=== PATIENT | female | born 1990 | race Caucasian/White ===

== ENCOUNTER → 2023-03-12 | Outpatient (CLI) | payer MEDICAID, SELFPAY ==
[2023-03-15 09:08] LABS: Chlamydia By Nucleic Acid AMP Negative (Negative); Gonococcus By Nucleic Acid AMP Negative (Negative)
== END | disposition home or self-care (01) ==
PROVIDERS: Visit Provider Registered Nurse
DX: Z34.90 Encounter for supervision of normal pregnancy, unspecified, unspecified trimester (principal)
CPT/HCPCS: 87086; 87088; 87491; 87591

== ENCOUNTER → 2023-06-08 | Outpatient (CLI) | payer BC, SELFPAY ==
[2023-06-08 12:54] LABS: Protein, Urine (Random) 68.6 mg/dL (<11.9); Protein:Creat Ratio 264 mg/g CRE (0-200)
== END | disposition home or self-care (01) ==
LOC: LABSPEC 11:33
PROVIDERS: Referring Provider Obstetrics & Gynecology; Visit Provider Obstetrics & Gynecology
DX: O12.10 Gestational proteinuria, unspecified trimester (principal); Z3A.00 Weeks of gestation of pregnancy not specified
CPT/HCPCS: 82570; 84156

== ENCOUNTER → 2023-07-05 | Outpatient (CLI) | payer BC, MEDICAID, SELFPAY ==
[2023-07-05 08:42] LABS: Absolute Lymphocyte Count 1.35 X10^3/uL (0.83-4.51); Absolute Neutrophil Count 4.8 X10^3/uL (2.0-7.7); Basophil# 0.03 X10^3/uL; Basophil% 0.4 % (0-1); Eosinophil# 0.05 X10^3/uL; Eosinophils% 0.7 % (0-5); Hematocrit 34.3 % (37-47); Lymphocyte # 1.35 X10^3/ul (0.83-4.51); Lymphocyte % 19.9 % (19-41); Mean Corpuscular Hgb 32.9 pg (27.0-32.0); Mean Platelet Vol. 9.6 fl (6.2-12.0); Monocyte% 7.4 % (0-10); NRBC Flagged by Analyzer 0 % (0-5); Neutrophil # 4.81 X10^3/uL (2.7-7.7); Neutrophil % 70.9 % (47-70); Platelet Count 283 K/mm3 (150-450); RBC Distribution Width CV 12.7 % (11.6-14.6); Red Blood Count 3.65 M/mm3 (4.2-5.4); White Blood Count 6.8 K/mm3 (4.4-11.0)
[2023-07-05 09:03] LABS: ALB/GLOB Ratio 0.7 RATIO (0.9-2.4); AST(SGOT) 14 U/L (15-37); Alanine Aminotransfer ALT/SGPT 15 U/L (13-56); Albumin, Serum 2.7 g/dL (3.2-5.0); Alkaline Phosphatase 69 U/L (45-117); Anion Gap 5 (5-15); BUN 8 mg/dL (7-18); BUN/Creat Ratio 15.3 RATIO (10-20); Calcium,Total 8.3 mg/dL (8.5-10.1); Chloride 108 mmol/L (98-107); Creatinine, Serum 0.52 mg/dL (0.55-1.02); EST Glomerular Filtration Rate 145 mL/min (>60); Est Glom Filt Rate - Afr Amer 175 mL/min (>60); Globulin 3.9 g/dL (2.2-4.2); Glucose 89 mg/dL (74-106); Glucose Challenge Gest 1H 50g 89 mg/dL (70-140); Potassium 3.2 mmol/L (3.5-5.1); Protein, Total 6.6 g/dL (6.4-8.2); Sodium Level 138 mmol/L (136-145)
[2023-07-05 09:45] LABS: HIV - WCH Non-Reactive (Nonreactive); Hepatitis B Surface Antigen Non-Reactive (Nonreactive); Hepatitis C Antibody Non-Reactive (Nonreactive); Rubella IgG Reactive (Nonreactive); Syphilis Antibodies Non-reactive
[2023-07-05 12:15] LABS: Protein, Urine (Random) 54.2 mg/dL (<11.9); Protein:Creat Ratio 420 mg/g CRE (0-200)
== END | disposition home or self-care (01) ==
LOC: PAVLAB 07:49 → LAB 07:51
PROVIDERS: Nurse Practitioner Women's Health; Registered Nurse; Referring Provider Obstetrics & Gynecology; Visit Provider Obstetrics & Gynecology
DX: O12.10 Gestational proteinuria, unspecified trimester (principal); Z3A.00 Weeks of gestation of pregnancy not specified
CPT/HCPCS: 36415; 80053; 82570; 82950; 84156; 85025; 86703; 86762; 86780; 86803; 86850; 86900; 86901; 87340

== ENCOUNTER → 2023-07-19 | Outpatient (CLI) | payer BC, MEDICAID, SELFPAY ==
[2023-07-19 10:25] LABS: Absolute Lymphocyte Count 1.28 X10^3/uL (0.83-4.51); Absolute Neutrophil Count 6.7 X10^3/uL (2.0-7.7); Basophil# 0.03 X10^3/uL; Basophil% 0.3 % (0-1); Eosinophil# 0.08 X10^3/uL; Eosinophils% 0.9 % (0-5); Hematocrit 33.4 % (37-47); Hemoglobin 11.8 g/dL (12.0-15.0); Lymphocyte # 1.28 X10^3/ul (0.83-4.51); Lymphocyte % 14.5 % (19-41); Mean Corp Hgb Conc 35.3 g/dL (32-36); Mean Corpuscular Hgb 32.9 pg (27.0-32.0); Mean Platelet Vol. 9.4 fl (6.2-12.0); Monocyte# 0.69 X10^3/uL; Monocyte% 7.8 % (0-10); NRBC Flagged by Analyzer 0 % (0-5); Neutrophil # 6.68 X10^3/uL (2.7-7.7); Neutrophil % 75.7 % (47-70); Platelet Count 260 K/mm3 (150-450); RBC Distribution Width CV 12.4 % (11.6-14.6); RBC Distribution Width SD 42.6 fl (35.1-43.9); Red Blood Count 3.59 M/mm3 (4.2-5.4); White Blood Count 8.8 K/mm3 (4.4-11.0)
[2023-07-19 10:35] LABS: Protein, Urine (Random) < 6.0 mg/dL (<11.9); Protein:Creat Ratio 394 mg/g CRE (0-200)
[2023-07-19 11:09] LABS: ALB/GLOB Ratio 0.7 RATIO (0.9-2.4); AST(SGOT) 18 U/L (15-37); Alanine Aminotransfer ALT/SGPT 16 U/L (13-56); Albumin, Serum 2.8 g/dL (3.2-5.0); Alkaline Phosphatase 69 U/L (45-117); Anion Gap 5 (5-15); BUN 8 mg/dL (7-18); BUN/Creat Ratio 16.1 RATIO (10-20); Calcium,Total 8.8 mg/dL (8.5-10.1); Chloride 108 mmol/L (98-107); EST Glomerular Filtration Rate 154 mL/min (>60); Est Glom Filt Rate - Afr Amer 187 mL/min (>60); Glucose 71 mg/dL (74-106); Potassium 3.7 mmol/L (3.5-5.1); Protein, Total 6.8 g/dL (6.4-8.2); Sodium Level 139 mmol/L (136-145)
== END | disposition home or self-care (01) ==
PROVIDERS: Referring Provider Nurse Practitioner Women's Health; Visit Provider Nurse Practitioner Women's Health
DX: O12.12 Gestational proteinuria, second trimester (principal); Z3A.00 Weeks of gestation of pregnancy not specified
CPT/HCPCS: 36415; 80053; 82570; 84156; 85025

== ENCOUNTER → 2023-08-02 | Outpatient (CLI) | payer BC, MEDICAID, SELFPAY ==
[2023-08-02 10:20] LABS: Absolute Lymphocyte Count 1.42 X10^3/uL (0.83-4.51); Absolute Neutrophil Count 6.5 X10^3/uL (2.0-7.7); Basophil# 0.04 X10^3/uL; Basophil% 0.5 % (0-1); Eosinophil# 0.06 X10^3/uL; Eosinophils% 0.7 % (0-5); Hematocrit 35.7 % (37-47); Hemoglobin 12.3 g/dL (12.0-15.0); Lymphocyte # 1.42 X10^3/ul (0.83-4.51); Lymphocyte % 16.4 % (19-41); Mean Corp Hgb Conc 34.5 g/dL (32-36); Mean Corpuscular Hgb 32.3 pg (27.0-32.0); Mean Corpuscular Volume 93.7 fL (81-99); Mean Platelet Vol. 9.4 fl (6.2-12.0); Monocyte# 0.62 X10^3/uL; Monocyte% 7.2 % (0-10); NRBC Flagged by Analyzer 0 % (0-5); Neutrophil # 6.47 X10^3/uL (2.7-7.7); Neutrophil % 74.6 % (47-70); Platelet Count 244 K/mm3 (150-450); RBC Distribution Width CV 12.4 % (11.6-14.6); RBC Distribution Width SD 42.4 fl (35.1-43.9); Red Blood Count 3.81 M/mm3 (4.2-5.4); White Blood Count 8.7 K/mm3 (4.4-11.0)
[2023-08-02 10:42] LABS: ALB/GLOB Ratio 0.8 RATIO (0.9-2.4); AST(SGOT) 13 U/L (15-37); Alanine Aminotransfer ALT/SGPT 15 U/L (13-56); Albumin, Serum 2.8 g/dL (3.2-5.0); Alkaline Phosphatase 75 U/L (45-117); Anion Gap 3 (5-15); BUN 8 mg/dL (7-18); Calcium,Total 8.5 mg/dL (8.5-10.1); Chloride 109 mmol/L (98-107); Creatinine, Serum 0.53 mg/dL (0.55-1.02); EST Glomerular Filtration Rate 142 mL/min (>60); Est Glom Filt Rate - Afr Amer 171 mL/min (>60); Globulin 3.7 g/dL (2.2-4.2); Glucose 82 mg/dL (74-106); Potassium 3.4 mmol/L (3.5-5.1); Protein, Total 6.5 g/dL (6.4-8.2); Sodium Level 139 mmol/L (136-145)
== END | disposition home or self-care (01) ==
PROVIDERS: Advanced Practice Midwife; Referring Provider Nurse Practitioner Women's Health; Visit Provider Nurse Practitioner Women's Health
DX: O12.12 Gestational proteinuria, second trimester (principal); O09.92 Supervision of high risk pregnancy, unspecified, second trimester; E87.6 Hypokalemia; O99.282 Endocrine, nutritional and metabolic diseases complicating pregnancy, second trimester; Z3A.00 Weeks of gestation of pregnancy not specified
CPT/HCPCS: 36415; 80053; 85025

== ENCOUNTER → 2023-08-16 | Outpatient (CLI) | payer BC, MEDICAID, SELFPAY ==
[2023-08-16 10:36] LABS: Absolute Lymphocyte Count 1.28 X10^3/uL (0.83-4.51); Absolute Neutrophil Count 7.4 X10^3/uL (2.0-7.7); Basophil# 0.03 X10^3/uL; Basophil% 0.3 % (0-1); Eosinophil# 0.05 X10^3/uL; Eosinophils% 0.5 % (0-5); Hematocrit 37.1 % (37-47); Hemoglobin 12.6 g/dL (12.0-15.0); Lymphocyte # 1.28 X10^3/ul (0.83-4.51); Lymphocyte % 13.6 % (19-41); Mean Corpuscular Hgb 31.7 pg (27.0-32.0); Mean Corpuscular Volume 93.5 fL (81-99); Mean Platelet Vol. 9.5 fl (6.2-12.0); Monocyte# 0.58 X10^3/uL; Monocyte% 6.2 % (0-10); NRBC Flagged by Analyzer 0 % (0-5); Neutrophil % 78.6 % (47-70); Platelet Count 264 K/mm3 (150-450); RBC Distribution Width CV 12.4 % (11.6-14.6); RBC Distribution Width SD 42.9 fl (35.1-43.9); Red Blood Count 3.97 M/mm3 (4.2-5.4); White Blood Count 9.4 K/mm3 (4.4-11.0)
[2023-08-16 10:57] LABS: ALB/GLOB Ratio 0.7 RATIO (0.9-2.4); AST(SGOT) 18 U/L (15-37); Alanine Aminotransfer ALT/SGPT 16 U/L (13-56); Albumin, Serum 2.8 g/dL (3.2-5.0); Alkaline Phosphatase 96 U/L (45-117); Anion Gap 5 (5-15); BUN 7 mg/dL (7-18); BUN/Creat Ratio 12.3 RATIO (10-20); Calcium,Total 8.6 mg/dL (8.5-10.1); Chloride 106 mmol/L (98-107); Creatinine, Serum 0.57 mg/dL (0.55-1.02); EST Glomerular Filtration Rate 131 mL/min (>60); Est Glom Filt Rate - Afr Amer 159 mL/min (>60); Globulin 4.2 g/dL (2.2-4.2); Glucose 92 mg/dL (74-106); LDH 167 U/L (84-246); Potassium 3.7 mmol/L (3.5-5.1); Sodium Level 137 mmol/L (136-145); Uric Acid 3.8 mg/dL (2.6-6.0)
[2023-08-16 10:58] LABS: Protein, Urine (Random) 20.6 mg/dL (<11.9); Protein:Creat Ratio 384 mg/g CRE (0-200)
[2023-08-16 13:53] LABS: Protein, Urine (Random) 86.5 mg/dL (<11.9); Protein:Creat Ratio 335 mg/g CRE (0-200)
== END | disposition home or self-care (01) ==
PROVIDERS: Advanced Practice Midwife; Referring Provider Obstetrics & Gynecology; Visit Provider Obstetrics & Gynecology
DX: O12.10 Gestational proteinuria, unspecified trimester (principal); Z3A.00 Weeks of gestation of pregnancy not specified
CPT/HCPCS: 36415; 80053; 82570; 83615; 84156; 84550; 85025; 87086

== ENCOUNTER → 2023-08-24 | Outpatient (CLI) | payer BC, MEDICAID, SELFPAY ==
[2023-08-24 13:52] LABS: Absolute Neutrophil Count 6.1 X10^3/uL (2.0-7.7); Basophil# 0.04 X10^3/uL; Basophil% 0.5 % (0-1); Eosinophil# 0.04 X10^3/uL; Eosinophils% 0.5 % (0-5); Hematocrit 34.8 % (37-47); Hemoglobin 11.8 g/dL (12.0-15.0); Lymphocyte % 17.4 % (19-41); Mean Corp Hgb Conc 33.9 g/dL (32-36); Mean Corpuscular Hgb 31.6 pg (27.0-32.0); Mean Corpuscular Volume 93.3 fL (81-99); Mean Platelet Vol. 9.8 fl (6.2-12.0); Monocyte# 0.87 X10^3/uL; Monocyte% 10.1 % (0-10); NRBC Flagged by Analyzer 0 % (0-5); Neutrophil # 6.09 X10^3/uL (2.7-7.7); Neutrophil % 70.8 % (47-70); Platelet Count 269 K/mm3 (150-450); RBC Distribution Width CV 12.4 % (11.6-14.6); RBC Distribution Width SD 42.3 fl (35.1-43.9); Red Blood Count 3.73 M/mm3 (4.2-5.4); White Blood Count 8.6 K/mm3 (4.4-11.0)
[2023-08-24 14:27] LABS: ALB/GLOB Ratio 0.7 RATIO (0.9-2.4); AST(SGOT) 17 U/L (15-37); Alanine Aminotransfer ALT/SGPT 12 U/L (13-56); Albumin, Serum 2.6 g/dL (3.2-5.0); Alkaline Phosphatase 95 U/L (45-117); Anion Gap 2 (5-15); BUN 9 mg/dL (7-18); BUN/Creat Ratio 18.1 RATIO (10-20); Calcium,Total 8.2 mg/dL (8.5-10.1); Chloride 106 mmol/L (98-107); EST Glomerular Filtration Rate 154 mL/min (>60); Est Glom Filt Rate - Afr Amer 186 mL/min (>60); Globulin 3.8 g/dL (2.2-4.2); Glucose 75 mg/dL (74-106); Potassium 3.7 mmol/L (3.5-5.1); Protein, Total 6.4 g/dL (6.4-8.2); Sodium Level 134 mmol/L (136-145)
== END | disposition home or self-care (01) ==
LOC: PAVLAB 12:22 → LAB 12:24
PROVIDERS: Advanced Practice Midwife; Referring Provider Nurse Practitioner Women's Health; Visit Provider Nurse Practitioner Women's Health
DX: O12.10 Gestational proteinuria, unspecified trimester (principal); Z3A.00 Weeks of gestation of pregnancy not specified
CPT/HCPCS: 36415; 80053; 85025

== ENCOUNTER → 2023-08-31 | Outpatient (CLI) | payer BC, MEDICAID, SELFPAY ==
[2023-08-31 11:13] LABS: Absolute Lymphocyte Count 0.99 X10^3/uL (0.83-4.51); Absolute Neutrophil Count 5.7 X10^3/uL (2.0-7.7); Basophil# 0.04 X10^3/uL; Basophil% 0.5 % (0-1); Eosinophil# 0.09 X10^3/uL; Eosinophils% 1.2 % (0-5); Hematocrit 36.5 % (37-47); Hemoglobin 12.8 g/dL (12.0-15.0); Lymphocyte # 0.99 X10^3/ul (0.83-4.51); Lymphocyte % 12.7 % (19-41); Mean Corp Hgb Conc 35.1 g/dL (32-36); Mean Corpuscular Hgb 32.8 pg (27.0-32.0); Mean Corpuscular Volume 93.6 fL (81-99); Mean Platelet Vol. 9.3 fl (6.2-12.0); Monocyte# 0.91 X10^3/uL; Monocyte% 11.7 % (0-10); NRBC Flagged by Analyzer 0 % (0-5); Neutrophil # 5.72 X10^3/uL (2.7-7.7); Neutrophil % 73.4 % (47-70); Platelet Count 238 K/mm3 (150-450); RBC Distribution Width CV 12.8 % (11.6-14.6); RBC Distribution Width SD 43.5 fl (35.1-43.9); White Blood Count 7.8 K/mm3 (4.4-11.0)
[2023-08-31 11:31] LABS: ALB/GLOB Ratio 0.7 RATIO (0.9-2.4); AST(SGOT) 17 U/L (15-37); Alanine Aminotransfer ALT/SGPT 13 U/L (13-56); Albumin, Serum 2.8 g/dL (3.2-5.0); Alkaline Phosphatase 108 U/L (45-117); Anion Gap 2 (5-15); BUN 9 mg/dL (7-18); BUN/Creat Ratio 16.3 RATIO (10-20); Calcium,Total 8.7 mg/dL (8.5-10.1); Chloride 106 mmol/L (98-107); Creatinine, Serum 0.55 mg/dL (0.55-1.02); EST Glomerular Filtration Rate 136 mL/min (>60); Est Glom Filt Rate - Afr Amer 165 mL/min (>60); Glucose 80 mg/dL (74-106); Potassium 3.7 mmol/L (3.5-5.1); Protein, Total 6.8 g/dL (6.4-8.2); Sodium Level 136 mmol/L (136-145)
== END | disposition home or self-care (01) ==
LOC: PAVLAB 10:40
PROVIDERS: Referring Provider Obstetrics & Gynecology; Visit Provider Obstetrics & Gynecology
DX: O12.10 Gestational proteinuria, unspecified trimester (principal); Z3A.00 Weeks of gestation of pregnancy not specified
CPT/HCPCS: 36415; 80053; 85025

== ENCOUNTER → 2023-08-31 | Outpatient (CLI) | payer BC, MEDICAID, SELFPAY ==
[2023-08-31 14:26] LABS: Protein, Urine (Random) 91.5 mg/dL (<11.9); Protein:Creat Ratio 384 mg/g CRE (0-200)
== END | disposition home or self-care (01) ==
LOC: LABSPEC 12:28
PROVIDERS: Referring Provider Obstetrics & Gynecology; Visit Provider Obstetrics & Gynecology
DX: O12.10 Gestational proteinuria, unspecified trimester (principal); Z3A.00 Weeks of gestation of pregnancy not specified
CPT/HCPCS: 82570; 84156

== ENCOUNTER → 2023-09-05 | Outpatient (CLI) | payer BC, MEDICAID, SELFPAY ==
--- NOTE | 2023-09-05 16:48 | US_ITS ---
STUDY: SECOND AND THIRD TRIMESTER OBSTETRICAL ULTRASOUND - LIMITED REASON FOR EXAM: Female, 33 years old Grown US every 4 weeks starting this week LMP: 12/30/2022 PRIOR ULTRASOUND: None. TECHNIQUE: Transabdominal TECHNICAL QUALITY: Adequate. FINDINGS: There is a single intrauterine fetus. The fetus is in a cephalic presentation. There is demonstrated cardiac activity with a heart rate of 133 bpm. There is a normal amniotic fluid volume. The largest amniotic fluid pocket measures 5.5 cm. The amniotic fluid index (RENETTA) is 14.2 cm. The placenta is fundal in location. There are Grade 1 placental changes. The cervix measures 4.4 cm in length. BIOMETRY: BPD: 9.0 cm: 36 weeks, 2 days HC: 32.6 cm: 37 weeks, 0 days AC: 30.9 cm: 34 weeks, 6 days FL: 6.8 cm: 34 weeks, 5 days Age by LMP: 35 weeks, 4 days. ABI by LMP: 10/06/2023. age by prior US: weeks, days. ABI by prior US: . age by current US: 36 weeks, 2 days. ABI by current US: 10/01/2023. Estimated weight: 2615 grams, +/- 392 grams, 38 percentile. Gender: US/OB Limited With Biometrics IMPRESSION: Living intrauterine of 36 weeks 2 days as described above. Electronically Signed: Rob Park MD at 22:30 EST ,
== END | disposition home or self-care (01) ==
LOC: US 16:48
PROVIDERS: Referring Provider Advanced Practice Midwife; Visit Provider Advanced Practice Midwife
DX: O12.12 Gestational proteinuria, second trimester (principal); Z3A.00 Weeks of gestation of pregnancy not specified
CPT/HCPCS: 76816

== ENCOUNTER → 2023-09-06 | Outpatient (CLI) | payer BC, MEDICAID, SELFPAY ==
[2023-09-06 10:47] LABS: Absolute Lymphocyte Count 1.14 X10^3/uL (0.83-4.51); Absolute Neutrophil Count 9.4 X10^3/uL (2.0-7.7); Basophil# 0.03 X10^3/uL; Basophil% 0.3 % (0-1); Eosinophil# 0.03 X10^3/uL; Eosinophils% 0.3 % (0-5); Hematocrit 36.6 % (37-47); Hemoglobin 12.4 g/dL (12.0-15.0); Lymphocyte # 1.14 X10^3/ul (0.83-4.51); Lymphocyte % 9.9 % (19-41); Mean Corp Hgb Conc 33.9 g/dL (32-36); Mean Corpuscular Hgb 31.5 pg (27.0-32.0); Mean Corpuscular Volume 92.9 fL (81-99); Mean Platelet Vol. 9.5 fl (6.2-12.0); Monocyte# 0.84 X10^3/uL; Monocyte% 7.3 % (0-10); NRBC Flagged by Analyzer 0 % (0-5); Neutrophil % 81.8 % (47-70); Platelet Count 268 K/mm3 (150-450); RBC Distribution Width CV 12.6 % (11.6-14.6); RBC Distribution Width SD 42.7 fl (35.1-43.9); Red Blood Count 3.94 M/mm3 (4.2-5.4); White Blood Count 11.5 K/mm3 (4.4-11.0)
[2023-09-06 10:55] LABS: ALB/GLOB Ratio 0.6 RATIO (0.9-2.4); AST(SGOT) 15 U/L (15-37); Alanine Aminotransfer ALT/SGPT 12 U/L (13-56); Albumin, Serum 2.7 g/dL (3.2-5.0); Alkaline Phosphatase 122 U/L (45-117); Anion Gap 4 (5-15); BUN 6 mg/dL (7-18); BUN/Creat Ratio 9.5 RATIO (10-20); Calcium,Total 8.5 mg/dL (8.5-10.1); Chloride 107 mmol/L (98-107); Creatinine, Serum 0.63 mg/dL (0.55-1.02); EST Glomerular Filtration Rate 117 mL/min (>60); Est Glom Filt Rate - Afr Amer 142 mL/min (>60); Globulin 4.3 g/dL (2.2-4.2); Glucose 83 mg/dL (74-106); Potassium 3.6 mmol/L (3.5-5.1); Sodium Level 138 mmol/L (136-145)
[2023-09-06 11:00] LABS: Protein, Urine (Random) 49.8 mg/dL (<11.9); Protein:Creat Ratio 519 mg/g CRE (0-200)
== END | disposition home or self-care (01) ==
LOC: PAVLAB 10:19
PROVIDERS: Referring Provider Advanced Practice Midwife; Visit Provider Advanced Practice Midwife
DX: O12.10 Gestational proteinuria, unspecified trimester (principal); Z3A.00 Weeks of gestation of pregnancy not specified
CPT/HCPCS: 36415; 80053; 82570; 84156; 85025

== ENCOUNTER → 2023-09-12 | Outpatient (CLI) | payer BC, MEDICAID, SELFPAY ==
[2023-09-12 12:20] LABS: Absolute Lymphocyte Count 1.23 X10^3/uL (0.83-4.51); Absolute Neutrophil Count 6.1 X10^3/uL (2.0-7.7); Basophil# 0.03 X10^3/uL; Basophil% 0.4 % (0-1); Eosinophil# 0.03 X10^3/uL; Eosinophils% 0.4 % (0-5); Hematocrit 34.9 % (37-47); Hemoglobin 11.9 g/dL (12.0-15.0); Lymphocyte # 1.23 X10^3/ul (0.83-4.51); Lymphocyte % 15.3 % (19-41); Mean Corp Hgb Conc 34.1 g/dL (32-36); Mean Corpuscular Hgb 31.1 pg (27.0-32.0); Mean Corpuscular Volume 91.1 fL (81-99); Mean Platelet Vol. 9.3 fl (6.2-12.0); Monocyte# 0.63 X10^3/uL; Monocyte% 7.8 % (0-10); NRBC Flagged by Analyzer 0 % (0-5); Neutrophil # 6.09 X10^3/uL (2.7-7.7); Neutrophil % 75.6 % (47-70); Platelet Count 328 K/mm3 (150-450); RBC Distribution Width CV 12.7 % (11.6-14.6); RBC Distribution Width SD 41.4 fl (35.1-43.9); Red Blood Count 3.83 M/mm3 (4.2-5.4); White Blood Count 8.1 K/mm3 (4.4-11.0)
[2023-09-12 12:39] LABS: ALB/GLOB Ratio 0.5 RATIO (0.9-2.4); AST(SGOT) 16 U/L (15-37); Alanine Aminotransfer ALT/SGPT 11 U/L (13-56); Albumin, Serum 2.4 g/dL (3.2-5.0); Alkaline Phosphatase 126 U/L (45-117); Anion Gap 6 (5-15); BUN 9 mg/dL (7-18); BUN/Creat Ratio 15.1 RATIO (10-20); Calcium,Total 8.7 mg/dL (8.5-10.1); Chloride 107 mmol/L (98-107); EST Glomerular Filtration Rate 125 mL/min (>60); Est Glom Filt Rate - Afr Amer 151 mL/min (>60); Globulin 4.4 g/dL (2.2-4.2); Glucose 80 mg/dL (74-106); Potassium 3.7 mmol/L (3.5-5.1); Protein, Total 6.8 g/dL (6.4-8.2); Sodium Level 137 mmol/L (136-145)
[2023-09-12 17:44] LABS: Protein, Urine (Random) 192.2 mg/dL (<11.9); Protein:Creat Ratio 579 mg/g CRE (0-200)
== END | disposition home or self-care (01) ==
PROVIDERS: Registered Nurse; PCP Internal Medicine; Referring Provider Advanced Practice Midwife; Visit Provider Advanced Practice Midwife
DX: Z34.93 Encounter for supervision of normal pregnancy, unspecified, third trimester (principal); Z3A.36 36 weeks gestation of pregnancy
CPT/HCPCS: 36415; 80053; 82570; 84156; 85025; 87081

== ENCOUNTER 2023-09-17 07:23 | Outpatient (CLI) | payer BC, MEDICAID, SELFPAY ==
[2023-09-17] VITALS (17 sets, daily range): BP systolic 110; BP diastolic 65; PULSE 90–117; TEMP 37; O2SAT 94–97; BMI 27.8
[2023-09-17 09:30] LABS: Hematocrit 32.1 % (37-47); Hemoglobin 11.3 g/dL (12.0-15.0); Mean Corp Hgb Conc 35.2 g/dL (32-36); Mean Corpuscular Hgb 31.7 pg (27.0-32.0); Mean Corpuscular Volume 90.2 fL (81-99); Mean Platelet Vol. 9.1 fl (6.2-12.0); Platelet Count 308 K/mm3 (150-450); RBC Distribution Width CV 12.4 % (11.6-14.6); RBC Distribution Width SD 40.8 fl (35.1-43.9); Red Blood Count 3.56 M/mm3 (4.2-5.4); White Blood Count 8.5 K/mm3 (4.4-11.0)
[2023-09-17] MEDS: Lactated Ringers 1,000 ML 999 ML IV (09:42)
[2023-09-17 09:59] LABS: AST(SGOT) 15 U/L (15-37); Alanine Aminotransfer ALT/SGPT 12 U/L (13-56); EST Glomerular Filtration Rate 151 mL/min (>60); Est Glom Filt Rate - Afr Amer 183 mL/min (>60); Estimated Creatinine Clearance 128.94 ml/min; Uric Acid 4.1 mg/dL (2.6-6.0)
[2023-09-17 10:17] LABS: Protein, Urine (Random) 19.9 mg/dL (<11.9); Protein:Creat Ratio 556 mg/g CRE (0-200)
--- NOTE | 2023-09-17 12:57 | OB.TRI.HP_ITS ---
HPI - General General Date of Service: 09/17/23 Chief Complaint: contractions HPI Narrative SIENA CORTEZ, is a 33 F who presents with contractions. good movement, no lof/vb. denies persistent headaches, visual changes or RUQ pain. has been monitored outpatient for proteinuria. Maternal Data Information ABI Calculator Estimated Delivery Date Method Current WG Current Estimate 10/06/23 Ultrasound #1 37w 2d Other Estimates 10/14/23 LMP (Certain) 36w 1d PFSH PFSH Medical History Abnormal Pap smear of cervix Home Medications vitamins no.163-iron bis-gly 20 mg-folate no.10 1 mg tablet (PNV Tabs 20-1) 1 tab PO DAILY 03/08/23 [History Last Taken Unknown] Allergy/AdvReac Type Severity Reaction Status Date / Time No Known Allergies Allergy Verified 09/12/23 11:06 Family History Grandfather Myocardial infarction Social History adopted: No household members: spouse and children number of children: 3 current occupational status: unemployed current occupational exposures/hazards: No pets and animals: Yes pets and animals: dog(s) history of recent travel: Yes ([place]) out of state: Yes out of country: No sexually active: Yes Smoking Status: Never smoker alcohol intake: current alcohol intake frequency: a few times a month details: Not while substance use type: does not use well-balanced diet: daily or most days caffeine: No eating out: 1-3 times/week during the past year weight has: remained stable what type of physical activity do you participate in: none 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 Date Name GA/Weeks Outcome Route Bth Weight Gen Labor Lgth Anesthesia Del Locatn Provider FOB 07/26/16 Miscarriage- chemical pregnanc 10/12/16 miscarriage at 8 wks 10/08/17 Su 41 live - full term 7#2oz Female 10 HRS [facility] 04/24/18 miscarriage-chemical 03/10/19 Julien 38 live - full term 7#1oz Male 10-12 HRS epidural [facility] 05/08/21 Chevy 39 live - full term 7#2oz Male epidural [facility] Visit Details Expected Delivery Route/Plan Labor Preferences- CB/BF classes: no labor support person: Teri labor intervention preferences: [] pain management options preferred: epidural cut cord/dad catch: cord : yes PP control planned: discussed: plans BS discussed possible routes of delivery and associated risks: [] special requests: [] Plans Covid status: unvaccinated Flu vaccine: declines Tdap vaccine: [] Rhogam: NA LARC form signed: yes Problem list reviewed and updated with the most current plan of care details and appropriate orders placed. Relevant counseling for the gestational age provided. Continue routine care and follow up unless otherwise noted in visit notes/problem list details OB Flowsheet Initial Weight: 135 lb Date -?-?-?-?-?-?-?-?-?-?-?-?- EGA Weight BP Urine Prot -?-?-?-?-?-?-?-?-?-?-?-?- Glucose FHR FuHt Pres Dilation -?-?-?-?-?-?-?-?-?-?-?-?- Effaced St Visit Note 03/12/23 -?-?-?-?-?-?-?-?-?-?-?-?- 10w 2d 135 lb 4 oz (+4 oz) 115/68 -?-?-?-?-?-?-?-?-?-?-?-?- 160 -?-?-?-?-?-?-?-?-?-?-?-?- LC-CRL 30.6 no c /w LMP. dates changed. consulted with SM agrees with CRL dates. 04/12/23 -?-?-?-?-?-?-?-?-?-?-?-?- 14w 5d 136 lb 8 oz (+1 lb 8 oz) 92/58 Negative -?-?-?-?-?-?-?-?-?-?-?--?- Negative 150 -?-?-?-?-?-?-?-?-?-?-?-?- JV- no complaint s today. declined nipt. 05/10/23 -?-?-?-?-?-?-?-?-?-?-?-?- 18w 5d 136 lb 2 oz (+1 lb 2 oz) 90/55 Negative -?-?-?-?-?-?-?-?-?-?-?-?- Negative 144 -?-?-?-?-?-?-?-?-?-?-?-?- JV- no complaint s today. wants pp tubal. we discussed likely will need to be added to or schedule remote from delivery. 06/08/23 -?-?-?-?-?-?-?-?-?-?-?-?- 22w 6d 140 lb 1 oz (+5 lb 1 oz) 102/64 1+ -?-?-?-?-?-?-?-?-?-?-?-?- Negative 145 -?-?-?-?-?-?-?-?-?-?-?-?- SM- no vb lof go od fm no regualr ctx 07/05/23 -?-?-?-?-?-?-?-?-?-?-?-?- 26w 5d 144 lb 2 oz (+9 lb 2 oz) 122/78 1+ -?-?-?-?-?-?-?-?-?-?-?-?- Negative 153 25 -?-?-?-?-?-?-?-?-?-?-?-?- MH-No VB, LOF. G ood FM. Doing all labs today, added Urine Pro/Cre ratio. 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 good fm. Labs after appt today. good bps at home, no CROWDER, dizziness, BV. passed glucose 08/02/23 -?-?-?-?-?-?-?-?-?-?-?-?- 30w 5d 148 lb (+13 lb) 110/64 1+ -?-?-?-?-?-?-?--?-?-?-?-?- Negative 130 30 -?-?-?-?-?-?-?-?-?-?-?-?- KW-no lof/vb/ctx . good fm. Pre e labs today after appt. 08/16/23 -?-?-?-?-?-?-?-?-?-?-?-?- 32w 5d 146 lb 8 oz (+11 lb 8 oz) 97/62 -?-?-?-?-?-?-?-?-?-?-?-?- 130 32 -?-?-?-?-?-?-?-?-?-?-?-?- SM- no vb lof go od fm no regular ctx discussed proteinuriamanagement 08/24/23 -?-?-?-?-?-?-?-?-?-?-?-?- 33w 6d 148 lb 2 oz (+13 lb 2 oz) 118/70 Trace -?-?-?-?-?-?-?-?-?-?-?-?- Negative 125 -?-?-?-?-?-?-?-?-?-?-?-?- KW- no vb/lof/ct x. good fm. reviewed POC with SM. Plan for growth us q4 weeks. NSTs weekly and weekly labs 08/31/23 -?-?-?-?-?-?-?-?-?-?-?-?- 34w 6d 148 lb 2 oz (+13 lb 2 oz) 108/67 1+ -?-?-?-?-?-?-?-?-?-?-?-?- Negative 130 33 -?-?-?-?-?-?-?-?-?-?-?-?- JV- still has pr oteinuria with low normal bp, continue monitoring. needs growth scan and rpt labs NST reactive 09/06/23 -?-?-?-?-?-?-?-?--?-?-?-?- 35w 5d 147 lb 4 oz (+12 lb 4 oz) 110/71 -?-?-?-?-?-?-?-?-?-?-?-?- 135 34 1 -?-?-?-?-?-?-?-?-?-?-?-?- 50 -2 kw- no vb/ lof/regular ctx. good fm. Reactive NST. having vaginal pressure. requesting cervical check. Growth US 38% 09/12/23 -?-?-?-?-?-?-?-?-?-?-?-?- 36w 4d 147 lb 4 oz (+12 lb 4 oz) 113/68 -?-?-?-?-?-?-?-?-?-?-?-?- 130 36 -?-?-?-?-?-?-?-?-?-?-?-?- LC- no vb/lof/ct x. good fm. reactive nst. weekly labs for proteinuria. LC- no vb/lof/ctx. good fm. reactive nst. weekly labs for proteinuria. declines ve. NST FHR Rate Baby A Baseline: 130 Variability:: Moderate Accelerations:: 15 x 15 Decelerations:: None NST Reactive:: Yes FHR Category:: Category I Uterine Activity:: irregular Assessment & Plan (1) False labor after 37 completed weeks of gestation: COMMENT: unchanged cervical exam. no change in PEC labs, stable for d/c home. PLAN: Plan Patient presents for triage evaluation secondary to contractions, now with less intensity and frequency FHT: Moderate variability reactive no decelerations category I tracing [place]: irregualr Contractions Assessment and plan: Reactive NST, reassuring maternal and status patient discharged to home to follow-up in office on Sunday or sooner as needed. See problem list details for additional plan information. Charges/Coding Procedures Urinary/Genital 52xxx-59xxx: [id number] non-stress test Interp
== END 2023-09-17 11:40 | disposition home or self-care (01) ==
LOC: WPOUT 07:43 → WP 07:43
PROVIDERS: Registered Nurse; PCP Internal Medicine; Visit Provider Obstetrics & Gynecology
DX: O47.1 False labor at or after 37 completed weeks of gestation (principal); Z3A.37 37 weeks gestation of pregnancy
CPT/HCPCS: 59025; 59050; 82565; 82570; 84156; 84450; 84460; 84550; 85027; 99221; J7120; G0378

== ENCOUNTER → 2023-09-27 | Outpatient (CLI) | payer BC, MEDICAID, SELFPAY ==
[2023-09-27 10:25] LABS: Absolute Lymphocyte Count 1.78 X10^3/uL (0.83-4.51); Absolute Neutrophil Count 6.4 X10^3/uL (2.0-7.7); Basophil# 0.04 X10^3/uL; Basophil% 0.4 % (0-1); Eosinophil# 0.02 X10^3/uL; Eosinophils% 0.2 % (0-5); Hematocrit 35.7 % (37-47); Hemoglobin 12.2 g/dL (12.0-15.0); Lymphocyte # 1.78 X10^3/ul (0.83-4.51); Lymphocyte % 19.5 % (19-41); Mean Corp Hgb Conc 34.2 g/dL (32-36); Mean Corpuscular Volume 90.8 fL (81-99); Mean Platelet Vol. 9.4 fl (6.2-12.0); Monocyte# 0.86 X10^3/uL; Monocyte% 9.4 % (0-10); NRBC Flagged by Analyzer 0 % (0-5); Platelet Count 292 K/mm3 (150-450); RBC Distribution Width CV 12.4 % (11.6-14.6); RBC Distribution Width SD 40.8 fl (35.1-43.9); Red Blood Count 3.93 M/mm3 (4.2-5.4); White Blood Count 9.2 K/mm3 (4.4-11.0)
[2023-09-27 10:49] LABS: ALB/GLOB Ratio 0.6 RATIO (0.9-2.4); AST(SGOT) 19 U/L (15-37); Alanine Aminotransfer ALT/SGPT 11 U/L (13-56); Albumin, Serum 2.8 g/dL (3.2-5.0); Alkaline Phosphatase 139 U/L (45-117); Anion Gap 5 (5-15); BUN 10 mg/dL (7-18); BUN/Creat Ratio 16.5 RATIO (10-20); Calcium,Total 8.9 mg/dL (8.5-10.1); Chloride 105 mmol/L (98-107); Creatinine, Serum 0.61 mg/dL (0.55-1.02); EST Glomerular Filtration Rate 122 mL/min (>60); Est Glom Filt Rate - Afr Amer 148 mL/min (>60); Globulin 4.4 g/dL (2.2-4.2); Glucose 69 mg/dL (74-106); Potassium 3.7 mmol/L (3.5-5.1); Protein, Total 7.2 g/dL (6.4-8.2); Sodium Level 136 mmol/L (136-145)
== END | disposition home or self-care (01) ==
LOC: PAVLAB 10:11
PROVIDERS: PCP Internal Medicine; Visit Provider Obstetrics & Gynecology
DX: O12.10 Gestational proteinuria, unspecified trimester (principal); Z3A.00 Weeks of gestation of pregnancy not specified
CPT/HCPCS: 36415; 80053; 85025

== ENCOUNTER 2023-09-30 21:05 | Inpatient (IN) | payer BC, MEDICAID, SELFPAY ==
[2023-09-30] VITALS (30 sets, daily range): BP systolic 82–124; BP diastolic 50–81; PULSE 76–133; TEMP 36.4–36.7; O2SAT 93–100; BMI 27.0
[2023-09-30] MEDS: LACTATED RINGERS 500 ML 999 ML IV (21:15)
[2023-09-30] MEDS: Lactated Ringers 1,000 ML 200 ML IV (21:28)
[2023-09-30 21:34] LABS: Absolute Lymphocyte Count 2.51 X10^3/uL (0.83-4.51); Absolute Neutrophil Count 7.4 X10^3/uL (2.0-7.7); Basophil# 0.04 X10^3/uL; Basophil% 0.4 % (0-1); Eosinophil# 0.04 X10^3/uL; Eosinophils% 0.4 % (0-5); Hematocrit 36.7 % (37-47); Hemoglobin 12.5 g/dL (12.0-15.0); Lymphocyte # 2.51 X10^3/ul (0.83-4.51); Lymphocyte % 23.2 % (19-41); Mean Corp Hgb Conc 34.1 g/dL (32-36); Mean Corpuscular Hgb 30.8 pg (27.0-32.0); Mean Corpuscular Volume 90.4 fL (81-99); Mean Platelet Vol. 10.2 fl (6.2-12.0); Monocyte# 0.78 X10^3/uL; Monocyte% 7.2 % (0-10); NRBC Flagged by Analyzer 0 % (0-5); Neutrophil # 7.41 X10^3/uL (2.7-7.7); Neutrophil % 68.3 % (47-70); Platelet Count 308 K/mm3 (150-450); RBC Distribution Width CV 12.3 % (11.6-14.6); RBC Distribution Width SD 40.3 fl (35.1-43.9); Red Blood Count 4.06 M/mm3 (4.2-5.4); White Blood Count 10.8 K/mm3 (4.4-11.0)
--- NOTE | 2023-09-30 21:46 | HP.PCM.OB_ITS ---
HPI - General General Date of Admission: 09/30/23 HPI Narrative SIENA CORTEZ, is a 33 y/o @ 39 weeks 1 day who presents to L&D with painful contractions. She has a history of rapid delivery after AROM. She states that membranes are intact and she is asking for an epidural walter. Maternal Data Information ABI Calculator Estimated Delivery Date Method Current WG Current Estimate 10/06/23 Ultrasound #1 39w 1d Other Estimates 10/14/23 LMP (Certain) 38w 0d PFSH PFSH Medical History (Updated 09/30/23 @ 21:31 by Ansley Greene) Abnormal Pap smear of cervix depression Home Medications vitamins no.163-iron bis-gly 20 mg-folate no.10 1 mg tablet (PNV Tabs 20-1) 1 tab PO DAILY 03/08/23 [History Last Taken 09/29/23] Allergy/AdvReac Type Severity Reaction Status Date / Time No Known Allergies Allergy Verified 09/30/23 21:43 Family History Grandfather Myocardial infarction Social History adopted: No household members: spouse and children number of children: 3 current occupational status: unemployed current occupational exposures/hazards: No pets and animals: Yes pets and animals: dog(s) history of recent travel: Yes ([facility]) out of state: Yes out of country: No sexually active: Yes Smoking Status: Never smoker alcohol intake: current alcohol intake frequency: a few times a month details: Not while substance use type: does not use well-balanced diet: daily or most days caffeine: No eating out: 1-3 times/week during the past year weight has: remained stable what type of physical activity do you participate in: none 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 Date Name GA/Weeks Outcome Route Bth Weight Infant Gen Labor Lgth Anesthesia Del Locatn Provider FOB 07/26/16 Miscarriage- chemical pregnanc 10/12/16 miscarriage at 8 wks 07/29/17 Su 41 live - full term 7#2oz Female 10 HRS epidural [facility] 04/24/18 miscarriage-chemical 03/10/19 Julien 38 live - full term 7#1oz Male 10-12 HRS epidural [facility] 05/08/21 Chevy 39 live - full term 7#2oz Male epidural [facility] Visit Details Expected Delivery Route/Plan Labor Preferences- CB/BF classes: no labor support person: Teri labor intervention preferences: [] pain management options preferred: epidural cut cord/dad catch: cord : yes PP control planned: discussed: plans BS discussed possible routes of delivery and associated risks: [] special requests: [] Plans Covid status: unvaccinated Flu vaccine: declines Tdap vaccine: [] Rhogam: NA LARC form signed: yes Problem list reviewed and updated with the most current plan of care details and appropriate orders placed. Relevant counseling for the gestational age provided. Continue routine care and follow up unless otherwise noted in visit notes/problem list details OB Flowsheet Initial Weight: 135 lb Date -?-?-?-?-?-?-?-?-?-?-?-?- EGA Weight BP Urine Prot -?-?-?-?-?-?-?-?-?-?-?-?- Glucose FHR FuHt Pres Dilation -?-?-?-?-?-?-?-?-?-?-?-?- Effaced St Visit Note 03/12/23 -?-?-?-?-?-?-?-?-?-?-?-?- 10w 2d 135 lb 4 oz (+4 oz) 115/68 -?-?-?-?-?-?-?-?-?-?-?-?- 160 -?-?-?-?-?-?-?-?-?-?-?-?- LC-CRL 30.6 no c /w LMP. dates changed. consulted with SM agrees with CRL dates. 04/12/23 -?-?-?-?-?-?-?-?-?-?-?-?- 14w 5d 136 lb 8 oz (+1 lb 8 oz) 92/58 Negative -?-?-?-?-?-?-?--?-?-?-?-?- Negative 150 -?-?-?-?-?-?-?-?-?-?-?-?- JV- no complaint s today. declined nipt. 05/10/23 -?-?-?-?-?-?-?-?-?-?-?-?- 18w 5d 136 lb 2 oz (+1 lb 2 oz) 90/55 Negative -?-?-?-?-?-?-?-?-?-?-?-?- Negative 144 -?-?-?-?-?-?-?-?-?-?-?-?- JV- no complaint s today. wants pp tubal. we discussed likely will need to be added to or schedule remote from delivery. 06/08/23 -?-?-?-?-?-?-?-?-?-?-?-?- 22w 6d 140 lb 1 oz (+5 lb 1 oz) 102/64 1+ -?-?-?-?-?-?-?-?-?-?-?-?- Negative 145 -?-?-?-?-?-?-?-?-?-?-?-?- SM- no vb lof go od fm no regualr ctx 07/05/23 -?-?-?-?-?-?-?-?-?-?-?-?- 26w 5d 144 lb 2 oz (+9 lb 2 oz) 122/78 1+ -?-?-?-?-?-?-?-?-?-?-?-?- Negative 153 25 -?-?-?-?-?-?-?-?--?-?-?-?- MH-No VB, LOF. G ood FM. Doing all labs today, added Urine Pro/Cre ratio. 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 good fm. Labs after appt today. good bps at home, no CROWDER, dizziness, BV. passed glucose 08/02/23 -?-?-?-?-?-?-?-?-?-?-?-?- 30w 5d 148 lb (+13 lb) 110/64 1+ -?-?-?--?-?-?-?-?-?-?-?-?- Negative 130 30 -?-?-?-?-?-?-?-?-?-?-?-?- KW-no lof/vb/ctx . good fm. Pre e labs today after appt. 08/16/23 -?-?-?-?-?-?-?-?-?-?-?-?- 32w 5d 146 lb 8 oz (+11 lb 8 oz) 97/62 -?-?-?-?-?-?-?-?-?-?-?-?- 130 32 -?-?-?-?-?-?-?-?-?-?-?-?- SM- no vb lof go od fm no regular ctx discussed proteinuriamanagement 08/24/23 -?-?-?-?-?-?-?-?-?-?-?-?- 33w 6d 148 lb 2 oz (+13 lb 2 oz) 118/70 Trace -?-?-?-?-?-?-?-?-?-?-?-?- Negative 125 -?-?-?-?-?-?-?-?-?-?-?-?- KW- no vb/lof/ct x. good fm. reviewed POC with SM. Plan for growth us q4 weeks. NSTs weekly and weekly labs 08/31/23 -?-?-?-?-?-?-?-?-?-?-?-?- 34w 6d 148 lb 2 oz (+13 lb 2 oz) 108/67 1+ -?-?-?-?-?-?-?-?-?-?-?-?- Negative 130 33 -?-?-?-?-?-?-?-?-?-?-?-?- JNuno- still has pr oteinuria with low normal bp, continue monitoring. needs growth scan and rpt labs NST reactive 09/06/23 -?-?-?-?--?-?-?-?-?-?-?-?- 35w 5d 147 lb 4 oz (+12 lb 4 oz) 110/71 -?-?-?-?-?-?-?-?-?-?-?-?- 135 34 1 -?-?-?-?-?-?-?-?-?-?-?-?- 50 -2 kw- no vb/ lof/regular ctx. good fm. Reactive NST. having vaginal pressure. requesting cervical check. Growth US 38% 09/12/23 -?-?-?-?-?-?-?-?-?-?-?-?- 36w 4d 147 lb 4 oz (+12 lb 4 oz) 113/68 -?-?-?-?-?-?-?-?-?-?-?-?- 130 36 -?-?-?-?-?-?-?-?-?-?-?-?- LC- no vb/lof/ct x. good fm. reactive nst. weekly labs for proteinuria. LC- no vb/lof/ctx. good fm. reactive nst. weekly labs for proteinuria. declines ve. 09/20/23 -?-?-?-?-?-?-?-?-?-?-?-?- 37w 5d 151 lb 2 oz (+16 lb 2 oz) 118/68 1+ -?-?-?-?-?-?-?-?-?-?-?-?- Negative 130 37 -?-?-?-?-?-?-?-?-?-?-?-?- SM- no vb lof go od fm no regular ctx SM- no vb lof good fm no reg ular ctx labs done in triage sunday09/27/23 -?-?-?-?-?-?-?-?-?-?-?-?- 38w 5d 149 lb (+14 lb) 103/64 Negative -?-?-?-?-?-?-?-?-?-?-?-?- Negative 130 38 2 -?-?-?-?-?-?-?-?-?-?-?-?- 30 -2 SM- no vb lof good fm no regualr ctx discussed IOL at 40 weeks next sunday if able due to proteinuria, but would be lower priotiy and could get bumped ROS Constitutional Constitutional: Denies change in weight, fatigue, fever(s), headache(s), poor appetite or weakness Eyes Eyes: Denies blurry vision, change in vision, seeing flashes or spots in vision ENT HEENT: Denies dizziness, headache(s), loss taste/smell or sore throat Cardiovascular Cardiovascular: Denies chest pain, dizziness, dyspnea, irregular heart rhythm, leg edema, palpitations, rapid heart rate or vomiting Respiratory/Chest Respiratory/Chest: Denies chest tightness, cough, dyspnea or breast pain Gastrointestinal Gastrointestinal: Denies abdominal pain, anorexia, constipation, cramping, diarrhea, hemorrhoids, vomiting or weight changes Genitourinary Genitourinary: Denies dysuria, flank pain, genital lesions, genital pain, urinary frequency or urinary urgency Musculoskeletal Musculoskeletal: Denies back pain, difficulty walking, joint pain, limited range of motion, muscle cramps or numbness Integumentary Integumentary: Denies lesions or unusual bruising Neurologic Neurologic: Denies abnormal movements, abnormal speech, dizziness, numbness, seizure-like activity or syncope Psychiatric Psychiatric: Denies anxiety, behavioral changes, change in appetite, change in libido, cognitive impairment, confusion, depression, difficulty concentrating, hallucinations or suicidal thoughts Endocrine Endocrinology: Denies excessive sweating, polydipsia or polyuria Hematologic/Lymphatic Hematologic/Lymphatic: Denies easy bleeding, easy bruising or lymphadenopathy Allergic/Immunologic Allergic/Immunologic: Denies itchy eyes, lip swelling, seasonal rhinorrhea, rhinitis, throat swelling, tongue swelling, eczemia, wheezing or asthma Vital Signs Vital Signs Vital Signs: 09/30/23 21:22 09/30/23 21:22 Pulse Rate 88 Blood Pressure 124/81 H BP Systolic 124 BP Diastolic 81 Weight Weight: 147 lb 11.355 oz Body Mass Index (BMI) 27.0 Physical Exam Const alert, oriented x3, no apparent distress and healthy appearing General Appearance: cooperative; Negative for anxious HEENT normocephalic Face and Sinus: normal facial exam Eyes EOMs intact bilaterally and no scleral icterus General Eye: normal appearance of both eyes Neck full ROM and supple Lymph Lymphatic: no lymphadenopathy noted Chest Chest: abnormal inspection of the chest Resp normal respiratory effort Effort and Inspection: able to speak in complete sentences Cardio regular rate GI soft to palpation and non-tender Inspection: gravid Palpation: soft; Negative for tender external exam normal Back/Spine no CVA tenderness Extremity normal to inspection, full ROM and no clubbing, cyanosis or edema General Extremity: Negative for calf tenderness or edema Skin Lesions: no lesions Rashes: no rashes Psych mental status grossly normal Labs Labs Labs: Blood Type A POSITIVE Antibody Screen NEGATIVE Hct 36.7 % (37-47) L Hgb 12.5 g/dL (12.0-15.0) Obstetrics Ultrasound Syphilis Total Ab Non-reactive Rubella IgG Antibody Reactive (Nonreactive) Hep Bs Antigen Non-Reactive (Nonreactive) Hepatitis C Antibody Non-Reactive (Nonreactive) Chlamydia DNA (ABELARDO) Negative (Negative) N.gonorrhoeae DNA (ABELARDO) Negative (Negative) HIV 1&2 Antibody Non-Reactive (Nonreactive) Glucose 1 Hr 50 gm 89 mg/dL (70-140) Assessment & Plan (1) Low serum potassium: COMMENT: Rx sent (2) Proteinuria affecting : QUALIFIERS: Trimester: second trimester Qualified Code(s): O12.12 - Gestational proteinuria, second trimester COMMENT: Pre E labs with office visit weekly. NSTs weekly. Growth q4-34%. Daily home BP checks. (3) Contraceptive management: QUALIFIERS: Contraceptive encounter type: other general counseling and advice Qualified Code(s): Z30.09 - Encounter for other general counseling and advice on contraception COMMENT: desires post tubal ligation- understands may need to come back at 8 weeks for procedure (4) Supervision of high-risk : QUALIFIERS: Trimester: second trimester Qualified Code(s): O09.92 - Supervision of high risk , unspecified, second trimester COMMENT: PRR , ABI 10/14/23, girl [facility] (tim[facility]) [facility] Julien [facility] (5) : QUALIFIERS: Weeks of gestation: 38 weeks Qualified Code(s): Z3A.38 - 38 weeks gestation of COMMENT: GBS Negative nl anatomy. declined ntd genetic & carrier testing PLAN: Plan Patient presents IAL, plan expectant management for , pitocin/AROM PRN if needed. Pain management: plans epidural. GBS: negative Management of any complications: none [facility] and made any clinically relevant updates.
[2023-09-30 22:20] LABS: Syphilis Antibodies Non-reactive
[2023-09-30] MEDS: fentaNYL-bupivacaine (epidural) 100 ML BAG EPIDURAL (22:22)
[2023-09-30] MEDS: Oxytocin 10 UNITS/ML Vial IM (23:42)
[2023-09-30] MEDS: Oxytocin 15 Units/NS 250ml 15 UNITS/250 ML IV.SOLN 83 UNITS IV (23:42)
--- NOTE | 2023-09-30 23:47 | EX.PCM.OBRPT ---
Assessment & Plan (1) Low serum potassium: COMMENT: Rx sent (2) Proteinuria affecting : QUALIFIERS: Trimester: second trimester Qualified Code(s): O12.12 - Gestational proteinuria, second trimester COMMENT: Pre E labs with office visit weekly. NSTs weekly. Growth q4-34%. Daily home BP checks. (3) Contraceptive management: QUALIFIERS: Contraceptive encounter type: other general counseling and advice Qualified Code(s): Z30.09 - Encounter for other general counseling and advice on contraception COMMENT: desires post tubal ligation- understands may need to come back at 8 weeks for procedure (4) Supervision of high-risk : QUALIFIERS: Trimester: second trimester Qualified Code(s): O09.92 - Supervision of high risk , unspecified, second trimester COMMENT: PRR , ABI 10/14/23, girl [facility] ([facility] Julien [facility] (5) : QUALIFIERS: Weeks of gestation: 38 weeks Qualified Code(s): Z3A.38 - 38 weeks gestation of COMMENT: GBS Negative nl anatomy. declined ntd genetic & carrier testing Maternal Data Information ABI Calculator Estimated Delivery Date Method Current WG Current Estimate 10/06/23 Ultrasound #1 39w 1d Other Estimates 10/14/23 LMP (Certain) 38w 0d Final ABI: 10/06/23 Final ABI Source: US <20 weeks Vaginal Delivery Maternal Presentation Maternal Presentation: Active Labor Type of Induction: Amniotomy Operative Information Date of Procedure: 09/30/23 Pre-Operative Diagnosis: @ 39 weeks 1 day, active labor Post-Operative Diagnosis: @ 39 weeks 1 day, active labor Surgery / Procedure Performed: Spontaneous Vaginal Delivery Type of Anesthesia: Epidural Anesthesiologist: Markel Torrez Drain: Breaux to straight drain Estimated Blood Loss: 50cc Time of Delivery: 23:39 Findings Description of Procedure: Patient began pushing and delivered the head in the LLOYD presentation. The head was delivered atraumatically and a loose nuchal cord ?1 was identified and easily reduced over the 's head. The anterior and posterior shoulders delivered without complication followed by the rest of the and the was placed on the maternal abdomen. Delayed cord clamping was employed for approximately 60 seconds. Cord was clamped and cut and gentle traction was applied to the cord and the placenta delivered spontaneously immediately following it was noted to be intact with three-vessel cord. The perineum and vagina were inspected and noted to have no laceration. EBL was 50cc. Patient and tolerated delivery well. Presentation: Vertex Amniotic Membrane Rupture Type: Artificial Amniotic Fluid Description: Clear Placental Delivery Description: Spontaneous Placenta Disposition: [facility] Cord Vessel Description: 3 Vessels Cord Entanglement: Around neck x 1, loose Nuchal Cord Compression: Without compression Infant A Gender: Female (1 minute): 8 (5 minute): 9 Delayed Cord Clamping: Yes Post Vaginal Delivery Medications Given After Delivery: IM Pitocin Episiotomy Description: None Laceration: None Complication Complications: None Multi Select Codes Urinary/Genital Urinary/Genital CPT Codes: 15481 Vaginal Delivery [facility]
--- NOTE | 2023-09-30 23:49 | DCINST_ITS ---
Discharge Instructions Diet Discharge Diet: No restrictions Activity Discharge Activity: Return to Normal Activity, May Not Drive (while taking narcotic pain medications.) and May Shower May resume sexual activity in: 4-6 weeks Dressing / Incision Call your doctor if your incision/area has: Continuous Slow Oozing, Sudden Increased Bleeding, Increased Pain/ Swelling, Increased Redness and Foul Smelling Discharge Follow Up Care Please Follow Up With: Lena Allen DO When: Call [phone] to make an appointment with your doctor in 6 weeks. If you had elevated blood pressure or 4th degree laceration, you will need to be seen in 2 weeks. Test Results: Test results from this visit will be discussed in further detail at your follow- up appointment, if applicable. Discharge Plan Admission Admit Date/Time: 09/30/23 21:05 Attending Provider: Lena Allen Primary Care Provider: Jazmin Fry Discharge Orders/Prescriptions Prescriptions: No Action PNV Tabs 20-1 20 mg iron- 1 mg tablet 1 tab PO DAILY Referrals / Follow Up: Jazmin Fry DO [Primary Care Provider] -
[2023-10-01] VITALS (40 sets, daily range): BP systolic 99–112; BP diastolic 55–67; PULSE 66–104; RESP 16; TEMP 36.5–37.3; O2SAT 92–99
[2023-10-01] MEDS: 0.9% Saline Lock 10 ML Syringe IV (02:49)
[2023-10-01] MEDS: Naproxen 500 MG Tablet PO (09:41)
--- NOTE | 2023-10-01 18:31 | PCM.PN.OB ---
Subjective Subjective Patient doing well without complaints. Tolerating PO. Ambulating and voiding without difficulty. Feeding well. Denies chest pain, shortness of breath, calf pain/swelling, fevers, chills, lightheadedness. Objective Data Objective Data Vital Signs: Vital Signs Temp Pulse Resp BP Pulse Ox O2 Del Method 98.7 F 71 16 106/61 96 Room Air 10/01/23 16:00 10/01/23 16:00 10/01/23 16:00 10/01/23 16:00 10/01/23 16:00 10/01/23 16:00 Oxygen Delivery Method Room Air Weight: 147 lb 11.355 oz Body Mass Index (BMI) 27.0 Intake & Output: Intake and Output for Last 24 Hours 09/29/23 09/30/23 10/01/23 23:59 23:59 23:59 Intake Total 946.67 / 946.67 250 / 250 Output Total 50 / 50 700 / 700 Balance 896.67 / 896.67 -450 / -450 Lab / Micro Data 09/30/23 21:15 Labs: Laboratory Results - last 24 hr 09/30/23 21:15: WBC 10.8, RBC 4.06 L, Hgb 12.5, Hct 36.7 L, MCV 90.4, MCH 30.8, MCHC 34.1, RDW Std Deviation 40.3, RDW Coeff of Evi 12.3, Plt Count 308, MPV 10.2, Immature Gran % (Auto) 0.500, Neut % (Auto) 68.3, Lymph % (Auto) 23.2, [place] % (Auto) 7.2, Eos % (Auto) 0.4, Baso % (Auto) 0.4, Absolute Neuts (auto) 7.4, Absolute Lymphs (auto) 2.51, Nucleated RBC % 0, Syphilis Total Ab Non-reactive, Blood Type A POSITIVE, Antibody Screen NEGATIVE Physical Exam Narrative exam performed at 1:10pm Const alert and no apparent distress Lymph Lymphatic: no lymphadenopathy noted Chest inspection of chest normal Resp normal respiratory effort and normal air movement Cardio regular rate and regular rhythm Uterus Palpation: uterus fundus firm Extremity normal to inspection, no calf tenderness and no pedal edema Assessment & Plan (1) Status post vaginal delivery: COMMENT: - 09/30/23 JV baby girl timothy verma PLAN: Plan s/p PPD # 1 1. routine post delivery care 2. breast feeding- support given 3. rh positive 4. rubella immune 5. plan d/c home tomorrow.
[2023-10-02 02:03] VITALS: BP 91/53; PULSE 58
[2023-10-02 02:04] VITALS: BP 91/53; PULSE 67; RESP 16; TEMP 36.7; O2SAT 98
--- NOTE | 2023-10-02 07:37 | PCM.PN.OB ---
Subjective Subjective Patient doing well without complaints. Tolerating PO. Ambulating and voiding without difficulty. Feeding well. Denies chest pain, shortness of breath, calf pain/swelling, fevers, chills, lightheadedness. Objective Data Objective Data Vital Signs: Vital Signs Temp Pulse Resp BP Pulse Ox O2 Del Method 98.0 F 67 16 91/53 L 98 Room Air 10/02/23 02:04 10/02/23 02:04 10/02/23 02:04 10/02/23 02:04 10/02/23 02:04 10/02/23 02:04 Oxygen Delivery Method Room Air Weight: 147 lb 11.355 oz Body Mass Index (BMI) 27.0 Intake & Output: Intake and Output for Last 24 Hours 09/30/23 10/01/23 10/02/23 23:59 23:59 23:59 Intake Total 946.67 / 946.67 250 / 250 Output Total 50 / 50 700 / 700 Balance 896.67 / 896.67 -450 / -450 Lab / Micro Data Attestation: I reviewed the patient's lab results. 09/30/23 21:15 ROS Constitutional Constitutional: Reports systems reviewed and no addt'l complaints, except as documented; Denies anorexia or headache(s) Cardiovascular Cardiovascular: Reports systems reviewed and no addt'l complaints, except as documented; Denies dizziness, dyspnea, nausea or tachypnea Respiratory/Chest Respiratory/Chest: Reports systems reviewed and no addt'l complaints, except as documented; Denies cough, dyspnea, shortness of breath at rest or tachypnea Gastrointestinal Gastrointestinal: Reports systems reviewed and no addt'l complaints, except as documented; Denies abdominal pain, constipation or nausea Genitourinary Genitourinary: Reports systems reviewed and no addt'l complaints, except as documented; Denies burning urination, difficulty urinating, dysuria, urinary frequency or urinary incontinence Musculoskeletal Musculoskeletal: Reports systems reviewed and no addt'l complaints, except as documented Integumentary Integumentary: Reports systems reviewed and no addt'l complaints, except as documented Neurologic Neurologic: Reports systems reviewed and no addt'l complaints, except as documented; Denies abnormal speech, dizziness or headache(s) Psychiatric Psychiatric: Reports systems reviewed and no addt'l complaints, except as documented Endocrine Endocrinology: Reports systems reviewed and no addt'l complaints, except as documented Hematologic/Lymphatic Hematologic/Lymphatic: Reports systems reviewed and no addt'l complaints, except as documented Physical Exam Const alert, oriented x3 and no apparent distress Neck full ROM Resp normal respiratory effort, normal air movement and no retractions Effort and Inspection: able to speak in complete sentences and symmetric chest movement GI soft to palpation Bladder / Kidney Exam: bladder normal to palpation Uterus Palpation: uterus fundus firm Extremity normal to inspection and full ROM Psych mental status grossly normal, thought process normal and cooperative Assessment & Plan (1) Status post vaginal delivery: COMMENT: - 09/30/23 JV baby girl timothy verma PLAN: s/p PPD # 2 1. routine post delivery care 2. breast feeding- support given 3. rh positive 4. rubella immune 5. discharge home (2) Low serum potassium: COMMENT: Rx sent Charges/Coding Multi Select Codes Urinary/Genital Urinary/Genital CPT Codes: No Charge
--- NOTE | 2023-10-02 07:38 | DCINST_ITS ---
Discharge Instructions Diet Discharge Diet: No restrictions Activity Discharge Activity: Return to Normal Activity May resume sexual activity in: 4-6 weeks Dressing / Incision Call your doctor if your incision/area has: Continuous Slow Oozing, Sudden Increased Bleeding, Increased Pain/ Swelling, Increased Redness and Foul Smelling Discharge Call your doctor if you observe: Fever of 101 or Higher, Coldness, Increased Pain, Numbness or Tingling, Change in Color, Inability to urinate, Inability to have a bowel movement, Using more than 1 pad per hour, Shortness of breath, Dizz iness, Fainting spells, Swelling in the ankles, Chest pain, Increased palpitations (irregular heartbeat), Calf discomfort and Uncontrolled pain Follow Up Care Please Follow Up With: Lena Allen DO When: Please call the office to schedule your follow up appointment in 6 weeks. If you had high blood pressure please call to schedule an appointment in 2 weeks. Test Results: Test results from this visit will be discussed in further detail at your follow- up appointment, if applicable. Discharge Plan Admission Admit Date/Time: 09/30/23 21:05 Attending Provider: Lena Allen Primary Care Provider: Jazmin Fry Discharge Orders/Prescriptions Prescriptions: No Action PNV Tabs 20-1 20 mg iron- 1 mg tablet 1 tab PO DAILY Referrals / Follow Up: Jazmin Fry DO [Primary Care Provider] - Disposition Disposition (needs filled in before D/C Order can be placed): Home, Self Care
[2023-10-02 08:27] VITALS: BP 97/56; PULSE 72
[2023-10-02 08:30] VITALS: BP 97/56; PULSE 72; RESP 16; TEMP 36.3
--- NOTE | 2023-10-03 09:40 | CASEMGMT ---
Social Work Assessment Labor and Delivery Unit Patient Address:[facility] [address] [place] [address] Phone number: [phone] Date of Referral: 10/01/23 Time of Referral:? 0100 Referred By: Lena Allen Date of Intervention: ?10/02/23? Time of Intervention:? 1310 Reason for Referral:? Hx of depression Margie completed chart review and acknowledges social work consult due to maternal history of depression. Sw met with mother of baby (DESMOND- Fara) and father of baby (LUZ- Brock) at bedside, introduced self and explained sw role. Sw completed psychosocial assessment and asked MOB to complete [place] Depression Scale. History obtained from: medical records, MOB and FOB Household composition: Currently residing in the family home is DESMOND, LUZ, their three other chilren: Su (: 07/29/17), Julien (: 03/10/19) and Chevy (: 05/08/21) and now baby. Parents deny any concerns with housing, reporting it is safe and secure. Patient's parent/guardian status:? ?Parents report that they have been together for 10 years, they have been together since high school. No concerns reported regarding domestic violence or intimate partner violence. Medical History: ?DESMOND is 33 year old female who is 7, para 3- now 4 following labor and delivery of . DESMOND received routine care during with [facility]. DESMOND delivered baby girl via vaginal delivery on 09/30/23. Baby girl, named Mary Rodrigez was born weighing 7lb 2oz and her apgars were 8 and 9 at one and five minutes of life respectfully. DESMOND states that she is breast feeding and this is going well. DESMOND reports that baby will be seen for pediatrics with Dr. Howell. Educational Status:? Both parents graduated from high school and obtained their Bachelors degrees. Parents deny any concerns with reading, learning or comprehension. Financial Status: LUZ is employed as a [employer] and is able to take a couple of days off of work. DESMOND is a stay at home mom. Infant Supplies:??Parents report that they have obtained all necessary items for baby, including: car seat, safe sleep space, clothes, diapers, wipes and a breast pump. Childcare/Caregiver(s):? MOB is the primary caregiver to baby, along with FOB when he is not at work. Transportation:??Both parents have their drivers license and reliable means of transportation. No transportation barriers at this time. Programs/Agencies Involved: ???Parents are not connected to any community resources at this time. Parents deny linkage to counseling services. Children Services/Legal Issues:??No history of children services involvement, no issues or concerns warranting a referral to be made at this time. Behavioral Health Issues: ??Mental Health History: LUZ states that he has been diagnosed with anxiety and is prescribed Lexapro. FOB stated that he was diagnosed in May due to some struggles that he was having at that time. FOB stated that the medication has helped him and he does not feel as anxious. FOB stated that the anxiety he was experiencing was not debilitating but was impacting his day to day life. DESMOND states that she has not been officially diagnosed with anxiety or depression but did experience depression following the delivery of her second baby. MOB stated that at that time she was sad and disengaged in things that she used to enjoy doing. MOB denies pharmacological medications at this time. MOB completed an [place] Depression SCale and her score was a 2. Sw provided education and support. ??? Substance Use History:?? MOB denies substance use prior to and during . Family History:??Parents deny family history of addiction and mental health diagnoses. ??? Drug Screens: ??No urine screens observed in chart review. Family/Social Stressors:?Parents deny any stressors or concerns at this time. Support Systems: MOB states that their neighbors and both sets of grandparents are supportive. Depression/Shaken Baby/Safe Sleeping:? Sw educated parents on signs and symptoms of baby blues and depression/ anxiety. Parents stated that they are familiar with signs and symptoms to be on the lookout for. FOB stated that he would be able to recognize when MOB is struggling, and feels that he would know how to help her and support her through her struggles. Sw educated parents on shaken baby prevention and ABCs of safe sleep. Parents expressed understanding. ASSESSMENT:? MOB and baby admitted following labor and delivery. FOB observed to provide loving and caring hands on care of baby. MOB with mental health history positive of depression. MOB stated that she was able to recognize that she was struggling and talked to her support people. MOB receptive to discussing concerns with sw about her mental health history. Parents have obtained all necessary baby items and have adequate supports in place. MOB receptive to discussing any concerns with her OBGYN. PLAN:? MOB and baby to be discharged when medically ready ?No other services requested or indicated. Roxann Jiménez, ENVIRONMENTAL EDUCATION SPECIALIST, FEED MANAGEMENT ADVISOR
== END 2023-10-02 11:35 | disposition home or self-care (01) | DRG 807 ==
LOC: WPOUT 21:07 → WP 21:07
PROVIDERS: Admitting Provider Obstetrics & Gynecology; PCP Internal Medicine; Visit Provider Obstetrics & Gynecology
DX: O12.14 Gestational proteinuria, complicating childbirth (principal); Z37.0 Single live birth; O69.81X0 Labor and delivery complicated by cord around neck, without compression, not applicable or unspecified; Z3A.39 39 weeks gestation of pregnancy
CPT/HCPCS: 59025; 59050; 85025; 86780; 86850; 86900; 86901; 99221; J7120; A4216; G0378

== ENCOUNTER → 2023-11-14 | Outpatient (CLI) | payer BC, MEDICAID, SELFPAY ==
[2023-11-19 14:08] LABS: HPV APTIMA, High Risk Negative (Negative)
== END | disposition home or self-care (01) ==
LOC: LABSPEC 14:52
PROVIDERS: PCP Internal Medicine; Referring Provider Obstetrics & Gynecology; Visit Provider Obstetrics & Gynecology
DX: Z12.4 Encounter for screening for malignant neoplasm of cervix (principal)
CPT/HCPCS: 87624; 88175; G0145